=== PATIENT | female | born 1950 | race Caucasian/White ===

== ENCOUNTER 2019-06-23 04:20 | Observation (INO) | payer MEDICARE, OTHER ==
[2019-06-23 05:02] LABS: #Basophils 0.1 thou/uL (0.0-0.2); #Eosinphils 0.5 thou/uL (0.0-0.7); #Lymphocytes 3.1 thou/uL (1.20-3.40); #Monocytes 0.7 thou/uL (0.11-0.59); #Neutrophils 2.8 thou/uL (1.40-6.50); %Basophils 1.1 % (0.0-1.0); %Eosinophils 6.6 % (0.0-10.0); %Lymphocytes 43.6 % (21.0-51.0); %Monocytes 9.3 % (0.0-10.0); %Neutrophils 39.4 % (42.0-75.0); Hemoglobin 17.5 g/dL (12.0-16.0); Mean Corpuscular HGB CONC 34.9 g/dL (32.0-36.0); Mean Corpuscular Hemoglobin 31.4 pg (27.0-31.0); Mean Platelet Volume 6.9 fL (7.4-10.4); Platelet Count 287 thou/uL (130-400); RBC Distribution Width 12.8 % (11.5-14.5); Red Blood Cell (RBC) Count 5.58 mill/uL (4.20-5.40); White Blood Cell (WBC) Count 7.2 thou/uL (4.8-10.8)
[2019-06-23] MEDS ORDERED: Nitroglycerin 0.4 MG TAB 1 EACH ONE (05:02)
[2019-06-23] MEDS ORDERED: Ondansetron PF 4 MG/2 ML Vial ONE (05:22)
[2019-06-23 05:38] LABS: ALT (SGPT) 43 U/L (8-55); AST (SGOT) 35 U/L (5-34); Albumin 4.7 g/dL (3.4-4.8); Alkaline Phosphatase 87 U/L (40-110); Anion Gap 15 mmol/L (10-20); BUN (Urea Nitrogen) 19 mg/dL (9.8-20.1); Bilirubin, Total 0.5 mg/dL (0.2-1.2); Calc. Creatinine Clearance 0 mL/min (70-130); Calcium 9.6 mg/dL (7.8-10.44); Carbon Dioxide 22 mmol/L (23-31); Chloride 107 mmol/L (98-107); Estimated GFR-MDRD 56; Glucose 102 mg/dL (80-115); Potassium 4.2 mmol/L (3.5-5.1); Protein, Total 7.7 g/dL (6.0-8.3); Sodium 140 mmol/L (136-145)
--- NOTE | 2019-06-23 07:34 | RAD ---
Exam: Chest one view HISTORY:Chest pain Comparison: 06/05/2011 FINDINGS: Cardiac silhouette: Normal Aorta: Unremarkable Pulmonary vessels: Normal Costophrenic angles: Clear LUNGS: No masses or consolidation. Pneumothorax: None Osseous abnormalities: None IMPRESSION: No acute cardiopulmonary process.
[2019-06-23 08:09] VITALS: BMI 29.5
[2019-06-23 08:16] LABS: Troponin I Less than 0.010 ng/mL (< 0.028)
[2019-06-23] MEDS ORDERED: traMADol HCl 50 MG TAB PO PRN (08:27)
[2019-06-23] MEDS ORDERED: Acetaminophen 325 MG TAB PO PRN ×2 (08:28→11:54)
[2019-06-23] MEDS ORDERED: ADENOSINE 60 MG/20 ML VIAL ONE (09:33)
[2019-06-23] MEDS ORDERED: Sodium Chloride 0.9% 1,000 ML IV SCH (10:15)
--- NOTE | 2019-06-23 10:20 | PDOC.HHP ---
Hospitalist HPI - History of Present Illness Chest pain History of Present Illness: Patient is a 69/F with PMH significant for HTN, HLD, spontaneous hemorragic brain bleed that presented to the Emergency department for chest pain 1 hour prior to arrival. Reports left sided chest pain, stabbing, non radiating, constant, 8/10, exacerbated and relieved by nothing. Reports associated nausea and headache. Denies any SOB, light headedness. Denies any changes in vision or speech, no extremity weakness. Patient also reports that she is unable to tolerate medications for HTN, HLD, GERD - multifactorial. ED Course: BP 206/128, HR 97 RR 17 Sp02 94% RA EKG NSR with some T wave changes CXR negative for acute cardiopulmonary process Troponins negative x 2 Given 1L NS Zofran SL nitro x 1 which dropped her SBP in the 70s, she was diaphoretic. Hospitalist ROS - Review of Systems Constitutional: denies: fever, chills, sweats, weakness, malaise, other Eyes: denies: pain, vision change, conjunctivae inflammation, eyelid inflammation, redness, other ENT: denies: ear pain, ear discharge, nose pain, nose discharge, nose congestion , mouth pain, mouth swelling, throat pain, throat swelling, other Respiratory: denies: cough, dry, shortness of breath, hemoptysis, SOB with excertion, pleuritic pain, sputum, wheezing, other Cardiovascular: reports: chest pain. denies: palpitations, orthopnea, paroxysmal noc. dyspnea, edema, light headedness Gastrointestinal: reports: nausea, diarrhea (chronic diarrhea and constipation since abdominal surgery). denies: vomiting, abdominal pain Genitourinary: denies: dysuria, frequency, incontinence, hematuria, retention, other Musculoskeletal: denies: neck pain, shoulder pain, arm pain, back pain, hand pain, leg pain, foot pain, other Neurological: denies: weakness, numbness, incoordination, change in speech, confusion, seizures, other - Medication Medications: Active Medications Generic Name Dose Route Start Last Admin Trade Name Freq PRN Reason Stop Dose Admin Tramadol HCl 25 mg 06/23/19 08:27 06/23/19 08:56 Ultram PO 25 mg Q6H PRN Administration Pain Hospitalist History - Past Medical History Cardiac: reports: HTN, Hyperlipidemia Pulmonary: reports: no pertinent history 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) Gastrointestinal: reports: Diverticulosis Hepatobiliary: reports: no pertinent history Psych: reports: no pertinent history Musculoskeletal: reports: Osteoarthritis Rheumatologic: reports: no pertinent history Infectious Disease: reports: no pertinent history Renal/: reports: no pertinent history Endocrine: reports: no pertinent history Dermatology: reports: no pertinent history - Past Surgical History Past Surgical History: reports: Cholecystectomy, Hysterectomy, Other (colon resection with reversal) - Family History Family History: reports: cardiac disorder, cerebrovascular accident - Social History Smoking Status: Former smoker (quit 7 years, previously smoked 1.5 ppd x 20 years) Tobacco Type: cigarettes Alcohol: reports: None Drugs: reports: none Living Situation: With Family Occupation: Retired, lives in [place] Activity level: independent ambulation - Exam General Appearance: NAD, awake alert Eye: anicteric sclera ENT: normocephalic atraumatic Neck: supple, no JVD, no thyromegaly, no lymphadenopathy, JVD Heart: RRR, no murmur, no gallops, no rubs Respiratory: CTAB, no wheezes, no rales, no ronchi Gastrointestinal: soft, non-tender (active BS throughout), no guarding, no rigidity Extremities: no cyanosis, no clubbing, no edema Neurological: cranial nerve grossly intact, no focal deficits Musculoskeletal: normal tone, normal strength Psychiatric: normal affect, A&O x 3 Hospitalist Results - Labs Result Diagrams: 06/23/19 04:37 06/23/19 04:37 Lab results: WBC 7.2 thou/uL (4.8-10.8) 06/23/19 04:37 Hgb 17.5 g/dL (12.0-16.0) H 06/23/19 04:37 Hct 50.2 % (36.0-47.0) H 06/23/19 04:37 MCV 90.0 fL (78.0-98.0) 06/23/19 04:37 Plt Count 287 thou/uL (130-400) 06/23/19 04:37 Neutrophils % 39.4 % (42.0-75.0) L 06/23/19 04:37 Sodium 140 mmol/L (136-145) 06/23/19 04:37 Potassium 4.2 mmol/L (3.5-5.1) 06/23/19 04:37 Chloride 107 mmol/L (98-107) 06/23/19 04:37 Carbon Dioxide 22 mmol/L (23-31) L 06/23/19 04:37 BUN 19 mg/dL (9.8-20.1) 06/23/19 04:37 Creatinine 0.99 mg/dL (0.6-1.1) 06/23/19 04:37 Glucose 102 mg/dL (80-115) 06/23/19 04:37 Calcium 9.6 mg/dL (7.8-10.44) 06/23/19 04:37 Total Bilirubin 0.5 mg/dL (0.2-1.2) 06/23/19 04:37 AST 35 U/L (5-34) H 06/23/19 04:37 ALT 43 U/L (8-55) 06/23/19 04:37 Alkaline Phosphatase 87 U/L (40-110) 06/23/19 04:37 Troponin I Less than 0.010 ng/mL (< 0.028) 06/23/19 07:38 Serum Total Protein 7.7 g/dL (6.0-8.3) 06/23/19 04:37 Albumin 4.7 g/dL (3.4-4.8) 06/23/19 04:37 Laboratory Tests 06/23/19 06/23/19 04:37 07:38 Troponin I 0.012 Less than 0.010 - EKG Interpretation EKG: NSR - Radiology Interpretation Chest x-ray Status: report reviewed by me Hospitalist H&P A/P - Plan Plan: Impression: Chest pain, r/o Acute coronary syndrome HTN HLD GERD Non-compliance medication regimen History of hemorrhagic brain bleed CKD3, stable OA Diverticulosis Plan: youth nutritional monitor Trend troponins Hold ASA per patient request Hold nitro 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
[2019-06-23] MEDS ORDERED: ALPRAZolam 0.25 MG TAB PO PRN (10:36)
[2019-06-23 11:09] LABS: Troponin I Less than 0.010 ng/mL (< 0.028)
[2019-06-23] MEDS: Ondansetron ODT 4 MG TAB PO PRN ×2 (11:09→21:22)
[2019-06-23] MEDS ORDERED: traMADol HCl 50 MG TAB PO SCH (12:15)
[2019-06-23] MEDS ORDERED: Lorazepam 2 MG/ML VIAL SLOW IVP SCH (13:30)
[2019-06-23] MEDS: traMADol HCl 50 MG TAB PO PRN ×2 (17:20→21:20)
--- NOTE | 2019-06-23 17:30 | NM ---
EXAM: NM Cardiac Stress W EF WF PROVIDED CLINICAL HISTORY: Chest pain. Hypertension and dyslipidemia. COMPARISON: 06/06/2011 FINDINGS: No significant reversible defect is seen between the stress and resting acquisitions. Quantitative an alysis also shows no significant reversible defect. Attenuation corrected images were not obtained due to patient's refusal of additional imaging. Normal ventricular wall motion and wall thickening is present on the gated acquisitions. The left ventricular ejection fraction is 78%. Left ventricular ejection fraction on the prior exam was 66%. Transient ischemic dilatation ratio is 1.38 with normal ratio of 1.22 or less. IMPRESSION: 1. Normal myocardial perfusion study without evidence of a significant reversible defect seen to sugg est ischemia. 2. Normal LVEF of 78%. 3. Elevated transient ischemic dilatation ratio.
[2019-06-23] MEDS ORDERED: Carvedilol 3.125 MG TAB PO SCH (19:00)
[2019-06-24] MEDS: traMADol HCl 50 MG TAB PO PRN (01:15)
--- NOTE | 2019-06-24 02:32 | HP ---
SUBJECTIVE: The patient is a 69-year-old female with hypertension, hyperlipidemia, presented to the emergency room with chest discomfort that was left-sided, nonradiating, 8/10 with some nausea and headache. Her blood pressure in the emergency room was 206/128. EKG showed some nonspecific ST-T wave changes. OBJECTIVE: VITAL SIGNS: Reviewed. LUNGS: Clear to auscultation bilaterally. HEART: S1 and S2 present. Regular. LABORATORY DATA: Reviewed. ASSESSMENT AND PLAN: I have seen and examined the patient. I agree with a history and physical by nurse practitioner, Laurent Sorensen. The patient is refusing aspirin at this time. Due to intermediate probability for coronary artery disease, we will get a stress test. Code status was verified. Job ID: [id number]
[2019-06-24 05:20] LABS: Cardiac Risk 6.1 (Less than 4.5)
[2019-06-24] MEDS ORDERED: Carvedilol 3.125 MG TAB PO SCH (08:00)
[2019-06-24 08:33] VITALS: TEMP 97.5
[2019-06-24 10:00] VITALS: BP 121/72
[2019-06-24] MEDS: Aspirin 81 mg Enteric Coated Tablet PO SCH ×2 (10:07→10:39)
--- NOTE | 2019-06-24 15:08 | DIS ---
DATE OF ADMISSION: 06/23/2019 DATE OF DISCHARGE: 06/24/2019 DISCHARGE DISPOSITION: Home. FOLLOWUP: 1. Follow up with primary care physician, Dr. Laurent Nicholas, in 1 week. 2. Follow up with Dr. Dailey on the 30 June 2019 at 2:30 p.m. ALLERGIES: THE PATIENT IS ALLERGIC TO SULFA AND PSEUDOEPHEDRINE. DISCHARGE MEDICATIONS: 1. Aspirin 81 mg daily. 2. Lipitor 20 mg at bedtime. 3. Carvedilol 3.125 mg b.i.d. 4. Tramadol as needed. The patient was seen and examined on the day of discharge. Denies any new complaints. No chest pain, shortness of breath, or palpitations. BRIEF HOSPITAL COURSE: The patient is a 69-year-old female with hypertension, hyperlipidemia, and subarachnoid bleed in 2005, presented to the emergency room yesterday with chest discomfort. Please refer to the history and physical for further details. The patient was admitted to the hospital with a diagnosis of chest discomfort, rule out acute coronary syndrome. Serial troponins remain negative. She underwent a Cardiolite stress test that was negative for reversible ischemia. TID was 1.38. The case was discussed with Cardiology, Dr. Dailey, who recommended an outpatient followup in our office. The patient was reluctant to start low-dose aspirin until being evaluated by Dr. Dailey. I discussed with Dr. Ndiaye's PA, Devi Mancilla. The patient had a subarachnoid bleed in 2005. She had an extensive workup at that time. According to Devi, the patient is safe to start 81 mg aspirin. The patient stated understanding with this. She will follow up with Cardiology. FINAL DIAGNOSES: 1. Chest discomfort, acute coronary syndrome ruled out. 2. Elevated transient ischemic dilation on the stress test. 3. Former smoker. 4. Hypertension. Low-dose carvedilol was added. 5. Dyslipidemia. 6. Gastroesophageal reflux disease. 7. History of subarachnoid bleed in 2005. 8. Chronic kidney disease, stage 3. 9. Degenerative joint disease. 10. Diverticulosis. SIGNIFICANT LABORATORY DATA: Troponin negative. Fasting lipid showed triglyceride 319, cholesterol 224, LDL 123, HDL of 37. The patient and the family stated understanding. Job ID: [id number]
--- NOTE | 2019-06-26 12:04 | EKG ---
Test Reason : Blood Pressure : / mmHG Vent. Rate : 084 BPM Atrial Rate : 084 BPM P-R Int : 168 ms QRS Dur : 084 ms QT Int : 416 ms P-R-T Axes : 050 028 095 degrees QTc Int : 491 ms Normal sinus rhythm Possible Left atrial enlargement Abnormal QRS-T angle, consider primary T wave abnormality Prolonged QT Abnormal ECG Confirmed by BETY HANSON ([id number]), market editor MILLIE MILIAN ([id number]) on 06/26/2019 12:04:42 PM Referred By: Confirmed By:BETY HANSON
--- NOTE | 2019-06-26 12:04 | EKG ---
Test Reason : Blood Pressure : / mmHG Vent. Rate : 096 BPM Atrial Rate : 096 BPM P-R Int : 164 ms QRS Dur : 078 ms QT Int : 374 ms P-R-T Axes : 058 012 099 degrees QTc Int : 472 ms Normal sinus rhythm Possible Left atrial enlargement Inferior infarct , age undetermined Abnormal ECG Confirmed by BETY HANSON ([id number]), editor continuity and script MILLIE MILIAN ([id number]) on 06/26/2019 12:04:38 PM Referred By: Confirmed By:BETY HANSON
== END 2019-06-24 11:36 | disposition home or self-care (01) ==
LOC: ERS 04:20 → 2SW 06:43
PROVIDERS: ADMIT Internal Medicine; ATTEND Internal Medicine
DX: R07.89 Other chest pain (principal); E78.5 Hyperlipidemia, unspecified; K21.9 Gastro-esophageal reflux disease without esophagitis; M19.90 Unspecified osteoarthritis, unspecified site; I12.9 Hypertensive chronic kidney disease with stage 1 through stage 4 chronic kidney disease, or unspecified chronic kidney disease; N18.3 Chronic kidney disease, stage 3 (moderate); K57.30 Diverticulosis of large intestine without perforation or abscess without bleeding; Z86.73 Personal history of transient ischemic attack (TIA), and cerebral infarction without residual deficits; Z87.891 Personal history of nicotine dependence; Z88.2 Allergy status to sulfonamides; Z88.8 Allergy status to other drugs, medicaments and biological substances; Z91.14 Patient's other noncompliance with medication regimen
CPT/HCPCS: 71045; 78452; 80053; 80061; 84484 ×2; 85025; 93005; 93017; 96361; 96374; 96375; 97139; 99285; A9500; G0378 ×3; 36415; J0153; J2060; J2405; Q0162

== ENCOUNTER 2019-06-25 16:35 | Emergency (ER) | payer MEDICARE, OTHER ==
[~2019-06-25 16:35] MED LIST: Iopamidol-370 76% 500 ML 1 ML ONE
[2019-06-25 17:02] LABS: #Eosinphils 0.4 thou/uL (0.0-0.7); #Monocytes 0.5 thou/uL (0.11-0.59); #Neutrophils 2.8 thou/uL (1.40-6.50); %Basophils 0.6 % (0.0-1.0); %Eosinophils 6.2 % (0.0-10.0); %Lymphocytes 34.7 % (21.0-51.0); %Monocytes 8.2 % (0.0-10.0); %Neutrophils 50.3 % (42.0-75.0); Hemoglobin 16.1 g/dL (12.0-16.0); Mean Corpuscular HGB CONC 34.5 g/dL (32.0-36.0); Mean Corpuscular Hemoglobin 31.3 pg (27.0-31.0); Mean Corpuscular Volume 90.8 fL (78.0-98.0); Mean Platelet Volume 6.9 fL (7.4-10.4); Platelet Count 276 thou/uL (130-400); RBC Distribution Width 12.7 % (11.5-14.5); Red Blood Cell (RBC) Count 5.13 mill/uL (4.20-5.40); White Blood Cell (WBC) Count 5.6 thou/uL (4.8-10.8)
[2019-06-25 17:20] LABS: ALT (SGPT) 43 U/L (8-55); AST (SGOT) 41 U/L (5-34); Albumin 4.2 g/dL (3.4-4.8); Alkaline Phosphatase 74 U/L (40-110); Anion Gap 14 mmol/L (10-20); BUN (Urea Nitrogen) 14 mg/dL (9.8-20.1); Bilirubin, Total 0.6 mg/dL (0.2-1.2); CK (CPK) 63 U/L (29-168); Calc. Creatinine Clearance 0 mL/min (70-130); Calcium 9.2 mg/dL (7.8-10.44); Carbon Dioxide 23 mmol/L (23-31); Chloride 107 mmol/L (98-107); Estimated GFR-MDRD 74; Globulin 3.1 g/dL (2.4-3.5); Glucose 149 mg/dL (80-115); Potassium 3.7 mmol/L (3.5-5.1); Protein, Total 7.3 g/dL (6.0-8.3); Sodium 140 mmol/L (136-145)
[2019-06-25] MEDS ORDERED: Midazolam HCl 5 mg/ml Vial ONE (17:42)
--- NOTE | 2019-06-25 18:30 | CT ---
Exam: CT angiogram of the thoracic aorta CT angiogram of the abdominal aorta HISTORY: Chest pain. History of abdominal aortic aneurysm COMPARISON: None TECHNIQUE: CT angiogram of the thoracic and abdominal aorta performed in the axial plane. Three-dimen sional reformatted images are submitted for interpretation FINDINGS: Chest CT: Visualized lower neck and axilla are unremarkable Mediastinum: No mass, lymphadenopathy or hematoma HEART: Normal heart size. No significant pericardial fluid. There are scattered coronary calcificatio ns in the left anterior coronary artery. Trachea and central bronchi: Patent Pleural effusion: None Pneumothorax: None LUNGS: Emphysematous changes, predominantly upper lobes. Dependent atelectatic changes in the lung ba ses. No suspicious consolidation. Lung nodules: No suspicious nodules in the right or left lung. Abdomen CT: Appropriate enhancement of the adrenal glands. There is appropriate arterial phase enhanc ement of the spleen. The pancreas has a appropriate attenuation. Mildly prominent pancreatic duct without obvious mass in the head of the pancreas is noted. Pancreatic duct measures 0.3 cm. Gallbladder surgically absent Diffuse hypoattenuation of the liver due to hepatic steatosis. There are no enhancing liver masses No gastrohepatic, retrocrural or periportal lymphadenopathy Enlarged left periaortic lymph node measures 1.1 x 0.6 cm. Symmetric enhancement of the kidneys. Bilaterally no obstructive uropathy. Limited evaluation the alimentary canal by the lack of oral contrast. No evidence of bowel obstructio n. CT ANGIOGRAM: The aortic root has appropriate enhancement and luminal diameter. The ascending thoraci c aorta has appropriate enhancement and luminal diameter. Aortic arch, descending thoracic aorta also have appropriate enhancement and luminal diameter. Minimal calcified and noncalcified plaque in the descending thoracic aorta The origin of the great vessels of the neck are grossly unremarkable The abdominal aorta doesn't demonstrate aneurysmal dilatation with eccentric thrombus as well as ulce ration. The infrarenal abdominal aorta measures 3.0 x 3.6 cm in the axial plane. Aortic bifurcation is unremarkable. The celiac artery origin, superior mesenteric artery origin, bilateral renal arteries have appropriat e enhancement and luminal diameter. Note, there appear to be 3 right renal arteries and 2 left renal arteries. Inferior mesenteric artery origin is unremarkable. There is atherosclerosis of the vi sualized iliac arteries. With regards to the aorta there is no evidence of periaortic fat stranding. IMPRESSION: 1. Aneurysmal dilatation of the infrarenal abdominal aorta with noncalcified plaque. This ulceration of the noncalcified plaques. Consider cardiovascular surgical consultation for further evaluation. No evidence of aortic rupture. 2. Nonspecific enlarged left periaortic lymph node. 3. Pancreatic duct diameter that is at the upper limits of normal. Transcribed Date/Time: 06/25/2019 6:42 PM
--- NOTE | 2019-06-25 18:33 | RAD ---
Exam: Chest one view HISTORY:Chest pain. Comparison: 06/23/2019 FINDINGS: Cardiac silhouette: Normal Aorta: Unremarkable Pulmonary vessels: Normal Costophrenic angles: Clear LUNGS: No masses or consolidation. Pneumothorax: None Osseous abnormalities: None IMPRESSION: No acute cardiopulmonary process.
[2019-06-26] MEDS ORDERED: Lidocaine 1% w/Epinephrine 1:100K 20 ML VIAL ONE (03:40)
[2019-06-26] MEDS ORDERED: Lidocaine 1% (PF) 30 ML VIAL ONE (03:40)
== END 2019-06-25 19:47 | disposition home or self-care (01) ==
LOC: ERS 16:35
DX: R07.89 Other chest pain (principal); I10 Essential (primary) hypertension; E78.5 Hyperlipidemia, unspecified; E78.00 Pure hypercholesterolemia, unspecified
CPT/HCPCS: 36415; 71045; 71275; 72191; 74175; 80053; 82550; 84484; 85025; 93005; 96374; J2001; J2250; Q9967

== ENCOUNTER 2020-06-29 15:15 | Emergency (ER) | payer MEDICARE, BC ==
[2020-06-29] MEDS ORDERED: Acetaminophen/Codeine 30-300mg Tablet ONE (16:47)
--- NOTE | 2020-06-29 17:40 | RAD ---
LEFT KNEE FOUR VIEWS: 06/29/20 HISTORY: Knot on the left knee. FINDINGS/IMPRESSION: No fracture, dislocation or bony destruction is seen. No joint effusion identified. There re mild deg enerative changes. POS: [facility]
== END 2020-06-29 16:52 | disposition home or self-care (01) ==
LOC: ERS 15:15
DX: S83.92XA Sprain of unspecified site of left knee, initial encounter (principal); E78.5 Hyperlipidemia, unspecified; E78.00 Pure hypercholesterolemia, unspecified; I10 Essential (primary) hypertension; Z87.891 Personal history of nicotine dependence; Z79.899 Other long term (current) drug therapy; X58.XXXA Exposure to other specified factors, initial encounter

== ENCOUNTER 2020-08-06 14:48 | Inpatient (IN) | payer BC, MEDICARE ==
[2020-08-06] MEDS ORDERED: Cefepime 2 GM VIAL ONE (15:44)
[2020-08-06 15:54] LABS: #Lymphocytes 0.9 thou/uL (1.20-3.40); #Monocytes 0.5 thou/uL (0.11-0.59); #Neutrophils 6.1 thou/uL (1.40-6.50); %Basophils 0.4 % (0.0-1.0); %Eosinophils 0.1 % (0.0-10.0); %Lymphocytes 11.7 % (21.0-51.0); %Neutrophils 81.8 % (42.0-75.0); Hemoglobin 13.8 g/dL (12.0-16.0); Mean Corpuscular HGB CONC 34.1 g/dL (32.0-36.0); Mean Corpuscular Hemoglobin 31.9 pg (27.0-31.0); Mean Corpuscular Volume 93.5 fL (78.0-98.0); Mean Platelet Volume 6.8 fL (7.4-10.4); Platelet Count 187 thou/uL (130-400); RBC Distribution Width 13.1 % (11.5-14.5); Red Blood Cell (RBC) Count 4.34 mill/uL (4.20-5.40); White Blood Cell (WBC) Count 7.5 thou/uL (4.8-10.8)
[2020-08-06] MEDS ORDERED: VANCOMYCIN 2 GRAM/400 ML BAG 2 GM in Premix Bag 1 BAG IVPB SCH (16:00)
[2020-08-06] MEDS ORDERED: Norepinephrine 8 MG/0.9% NS 250 ML IVPB SCH (16:00)
[2020-08-06 16:01] LABS: Actual Bicarbonate (HCO3v) 20 mEq/L (22-28); Analyzer IN Cardio ER; Calcium, Ionized (venous) 0.99 mmol/L (1.16-1.32); Chloride (VBG) 105 mmol/L (98-106); Hemoglobin (Hb) 14.6 g/dL (11.7-16.1); Potassium (VBG) 3.78 mmol/L (3.70-5.30); Sodium 134.2 mmol/L (133-146); pH (venous) 7.39 (7.32-7.43)
[2020-08-06 16:12] LABS: Bilirubin Negative (Negative); Blood, Urine Negative (Negative); Clarity Clear (Clear); Glucose, Urine (Dipstick) Normal (Negative); Ketone, Urine Negative (Negative); Leukocyte Negative Leu/uL (Negative); Nitrite Negative (Negative); Protein, Urine (Dipstick) Negative (Neg-Trace); Specific Gravity, Urine 1.005 (1.002-1.036); Urobilinogen Normal mg/dL (Less than 2); pH, Urine 6.5 (5.0-9.0)
[2020-08-06 16:15] LABS: ALT (SGPT) 58 U/L (8-55); AST (SGOT) 61 U/L (5-34); Albumin 3.2 g/dL (3.4-4.8); Alkaline Phosphatase 54 U/L (40-110); Anion Gap 13 mmol/L (10-20); BUN (Urea Nitrogen) 16 mg/dL (9.8-20.1); Calc. Creatinine Clearance 0 mL/min (70-130); Calcium 6.9 mg/dL (7.8-10.44); Carbon Dioxide 19 mmol/L (23-31); Chloride 106 mmol/L (98-107); Globulin 2.2 g/dL (2.4-3.5); Glucose 97 mg/dL (80-115); Potassium 3.9 mmol/L (3.5-5.1); Protein, Total 5.4 g/dL (5.8-8.1); Sodium 134 mmol/L (136-145)
[2020-08-06 17:29] LABS: SARS-CoV-2 NAA Rapid Test DETECTED (NotDetected)
[2020-08-06] MEDS ORDERED: Guaifenesin DM 100-10/5 ML UDCUP PO PRN (18:12)
[2020-08-06] MEDS ORDERED: Norepinephrine 8 MG/0.9% NS 250 ML IVPB PRN (18:12)
[2020-08-06] MEDS ORDERED: Calcium Carbonate 500 MG ChewTAB PO PRN (18:12)
[2020-08-06] MEDS ORDERED: Pharmacy to Dose- VANCOMYCIN IVPB PRN (19:24)
[2020-08-06] MEDS: Atorvastatin Calcium 20 MG TAB PO SCH (19:49)
[2020-08-06] MEDS: Lactated Ringer's 1,000 ML IV SCH ×2 (19:50→22:47)
[2020-08-06] MEDS ORDERED: methylPREDNISolone Sod Succ/PF 80 MG in Sodium Chloride 0.9% 250 ML 250 ML IVPB SCH (20:00)
[2020-08-06] MEDS ORDERED: REMDESIVIR (EUA) 200 MG in Sodium Chloride 0.9% 250 ML 210 ML IV SCH (20:00)
[2020-08-06 21:05] VITALS: BMI 30.6
[2020-08-06] MEDS ORDERED: Sodium Chloride 0.65% Nasal 44 ML BOT EA NARE PRN (21:53)
[2020-08-06] MEDS: Albuterol 200 PUFF (6.7GM INHALER) INH SCH ×2 (21:53→22:15)
[2020-08-06] MEDS: Enoxaparin Sodium 40 MG/0.4 ML SYRINGE SC SCH ×2 (22:00→22:47)
[2020-08-06] MEDS: Piperacillin/Tazobactam 4.5 GM in Sodium Chloride 0.9% 100 ML IVPB SCH (22:47)
[2020-08-06] MEDS: Acetaminophen 325 MG TAB PO PRN (22:48)
[2020-08-06] MEDS ORDERED: methylPREDNISolone Sod Succ 40 MG VIAL IVP SCH (23:59)
[2020-08-07] MEDS ORDERED: Sodium Chloride 0.9% 500 ML IVPB SCH (02:15)
[2020-08-07] MEDS: Piperacillin/Tazobactam 4.5 GM in Sodium Chloride 0.9% 100 ML IVPB SCH (05:41)
[2020-08-07] MEDS: Albuterol 200 PUFF (6.7GM INHALER) INH SCH ×4 (05:41→23:51)
[2020-08-07 06:30] LABS: #Lymphocytes 0.6 thou/uL (1.20-3.40); #Monocytes 0.2 thou/uL (0.11-0.59); #Neutrophils 3.2 thou/uL (1.40-6.50); %Eosinophils 0.1 % (0.0-10.0); %Lymphocytes 14.4 % (21.0-51.0); %Monocytes 4.4 % (0.0-10.0); %Neutrophils 81.1 % (42.0-75.0); Hemoglobin 13.2 g/dL (12.0-16.0); Mean Corpuscular HGB CONC 32.9 g/dL (32.0-36.0); Mean Corpuscular Hemoglobin 30.9 pg (27.0-31.0); Mean Platelet Volume 6.8 fL (7.4-10.4); Platelet Count 183 thou/uL (130-400); RBC Distribution Width 13.1 % (11.5-14.5); Red Blood Cell (RBC) Count 4.28 mill/uL (4.20-5.40); White Blood Cell (WBC) Count 3.9 thou/uL (4.8-10.8)
[2020-08-07 06:52] LABS: ALT (SGPT) 54 U/L (8-55); AST (SGOT) 53 U/L (5-34); Alkaline Phosphatase 56 U/L (40-110); Anion Gap 10 mmol/L (10-20); BUN (Urea Nitrogen) 13 mg/dL (9.8-20.1); Bilirubin, Total 0.8 mg/dL (0.2-1.2); Calc. Creatinine Clearance 88 mL/min (70-130); Calcium 7.2 mg/dL (7.8-10.44); Carbon Dioxide 22 mmol/L (23-31); Chloride 111 mmol/L (98-107); Globulin 2.4 g/dL (2.4-3.5); Glucose 152 mg/dL (80-115); Potassium 4.1 mmol/L (3.5-5.1); Protein, Total 5.4 g/dL (5.8-8.1); Sodium 139 mmol/L (136-145)
[2020-08-07] MEDS: Enoxaparin Sodium 40 MG/0.4 ML SYRINGE SC SCH ×2 (07:58→21:09)
[2020-08-07] MEDS: Ascorbic Acid 500 mg Chewable Tablet PO SCH (07:58)
[2020-08-07] MEDS: Aspirin 81 mg Enteric Coated Tablet PO SCH (07:58)
[2020-08-07] MEDS: Zinc Sulfate 220 MG CAP PO SCH (07:58)
[2020-08-07] MEDS ORDERED: Enoxaparin Sodium 40 MG/0.4 ML SYRINGE SC SCH (09:00)
[2020-08-07] MEDS: Ondansetron PF 4 MG/2 ML Vial IVP PRN (11:15)
[2020-08-07] MEDS: Lactated Ringer's 1,000 ML IV SCH ×2 (14:16→23:50)
[2020-08-07] MEDS ORDERED: VANCOMYCIN 1.25 GM/250 ML BAG 1.25 GM in Premix Bag 1 BAG IVPB SCH (17:00)
[2020-08-07] MEDS: Acetaminophen 325 MG TAB PO PRN (18:45)
[2020-08-07] MEDS ORDERED: REMDESIVIR (EUA) 100 MG in Sodium Chloride 0.9% 250 ML 230 ML IV SCH (20:00)
[2020-08-07] MEDS ORDERED: ALPRAZolam 0.5 MG TAB PO SCH (21:00)
[2020-08-07] MEDS: Atorvastatin Calcium 20 MG TAB PO SCH (21:09)
[2020-08-08] MEDS ORDERED: Melatonin 3 MG TAB PO SCH (00:30)
[2020-08-08] MEDS: Ondansetron PF 4 MG/2 ML Vial IVP PRN ×2 (03:22→09:40)
[2020-08-08] MEDS: Ascorbic Acid 500 mg Chewable Tablet PO SCH (08:14)
[2020-08-08] MEDS: Aspirin 81 mg Enteric Coated Tablet PO SCH (08:14)
[2020-08-08] MEDS: Acetaminophen 325 MG TAB PO PRN (08:15)
[2020-08-08] MEDS: Zinc Sulfate 220 MG CAP PO SCH (08:15)
[2020-08-08] MEDS: Albuterol 200 PUFF (6.7GM INHALER) INH SCH (08:15)
[2020-08-08] MEDS: Enoxaparin Sodium 40 MG/0.4 ML SYRINGE SC SCH (08:16)
[2020-08-08 08:17] VITALS: TEMP 98.3
[2020-08-08] MEDS ORDERED: Dexamethasone 6 MG in Sodium Chloride 0.9% 50 ML IVPB SCH (09:00)
[2020-08-08] MEDS: Lactated Ringer's 1,000 ML IV SCH (11:34)
== END 2020-08-08 13:30 | disposition left against medical advice (07) | DRG 871 ==
LOC: ERS 14:48 → IMCU/EMU 17:23
PROVIDERS: ADMIT Internal Medicine; ATTEND Internal Medicine
PROC: 02HV33Z Insertion of Infusion Device into Superior Vena Cava, Percutaneous Approach (ICD-10-PCS; principal; 2020-08-06)
PROC: XW033E5 Introduction of Remdesivir Anti-infective into Peripheral Vein, Percutaneous Approach, New Technology Group 5 (ICD-10-PCS; 2020-08-06)
PROC: 3E033XZ Introduction of Vasopressor into Peripheral Vein, Percutaneous Approach (ICD-10-PCS; 2020-08-06)
DX: A41.89 Other specified sepsis (principal); U07.1 COVID-19; J12.82 Pneumonia due to coronavirus disease 2019; J96.01 Acute respiratory failure with hypoxia; R57.1 Hypovolemic shock; E78.5 Hyperlipidemia, unspecified; E78.00 Pure hypercholesterolemia, unspecified; I10 Essential (primary) hypertension; E66.9 Obesity, unspecified; K21.9 Gastro-esophageal reflux disease without esophagitis; Z90.710 Acquired absence of both cervix and uterus; Z87.891 Personal history of nicotine dependence; Z88.2 Allergy status to sulfonamides; Z88.8 Allergy status to other drugs, medicaments and biological substances; Z79.82 Long term (current) use of aspirin; Z79.899 Other long term (current) drug therapy; Z68.30 Body mass index [BMI] 30.0-30.9, adult; Z90.49 Acquired absence of other specified parts of digestive tract; Z82.3 Family history of stroke; Z82.49 Family history of ischemic heart disease and other diseases of the circulatory system
CPT/HCPCS: 0240U; 36415; 36556; 70450; 71045; 80053; 81003; 82728; 82805; 83605; 84145; 85025; 86140; 87040; 87086; 96365; 96366; J0692; J1100; J1650; J2405; J2543; J2930; J3370; J3490; J7030; J7050

== ENCOUNTER 2020-08-08 16:53 | Inpatient (IN) | payer BC, MEDICARE ==
[2020-08-08 18:20] LABS: #Lymphocytes 0.7 thou/uL (1.20-3.40); #Monocytes 0.7 thou/uL (0.11-0.59); #Neutrophils 7.2 thou/uL (1.40-6.50); %Basophils 0.4 % (0.0-1.0); %Eosinophils 0.1 % (0.0-10.0); %Lymphocytes 8.5 % (21.0-51.0); %Monocytes 7.5 % (0.0-10.0); %Neutrophils 83.4 % (42.0-75.0); Hemoglobin 14.6 g/dL (12.0-16.0); Mean Corpuscular HGB CONC 33.3 g/dL (32.0-36.0); Mean Platelet Volume 6.8 fL (7.4-10.4); Platelet Count 242 thou/uL (130-400); Red Blood Cell (RBC) Count 4.71 mill/uL (4.20-5.40); White Blood Cell (WBC) Count 8.6 thou/uL (4.8-10.8)
[2020-08-08 18:42] LABS: ALT (SGPT) 47 U/L (8-55); AST (SGOT) 47 U/L (5-34); Albumin 3.9 g/dL (3.4-4.8); Alkaline Phosphatase 66 U/L (40-110); Anion Gap 12 mmol/L (10-20); BUN (Urea Nitrogen) 11 mg/dL (9.8-20.1); Bilirubin, Total 0.8 mg/dL (0.2-1.2); Calc. Creatinine Clearance 0 mL/min (70-130); Calcium 8.2 mg/dL (7.8-10.44); Carbon Dioxide 28 mmol/L (23-31); Chloride 106 mmol/L (98-107); Globulin 2.7 g/dL (2.4-3.5); Glucose 119 mg/dL (80-115); Potassium 4.2 mmol/L (3.5-5.1); Protein, Total 6.6 g/dL (5.8-8.1); Sodium 142 mmol/L (136-145)
[2020-08-08] MEDS ORDERED: Ondansetron PF 4 MG/2 ML Vial IVP PRN (21:28)
[2020-08-08] MEDS ORDERED: Acetaminophen 650 MG Suppository PR PRN (21:28)
[2020-08-08] MEDS ORDERED: Ondansetron ODT 4 MG TAB PO PRN (21:28)
[2020-08-08] MEDS ORDERED: guaiFENesin 200 MG TAB PO PRN (21:33)
[2020-08-08] MEDS ORDERED: Albuterol 200 PUFF (6.7GM INHALER) INH PRN (21:34)
[2020-08-08] MEDS ORDERED: Dexamethasone 4 mg/ml Vial SLOW IVP SCH (22:00)
[2020-08-08] MEDS: Dexamethasone 4 mg/ml Vial SLOW IVP SCH (22:43)
[2020-08-08] MEDS: Albuterol 200 PUFF (6.7GM INHALER) INH SCH (22:52)
[2020-08-09] MEDS ORDERED: ALPRAZolam 0.25 MG TAB PO SCH (01:30)
[2020-08-09] MEDS: Albuterol 200 PUFF (6.7GM INHALER) INH SCH ×6 (01:41→22:18)
[2020-08-09] MEDS: Acetaminophen 325 MG TAB PO PRN ×3 (01:41→22:46)
[2020-08-09 03:10] VITALS: BMI 31.2
[2020-08-09 06:01] LABS: #Lymphocytes 0.6 thou/uL (1.20-3.40); #Monocytes 0.5 thou/uL (0.11-0.59); #Neutrophils 5.2 thou/uL (1.40-6.50); %Basophils 0.7 % (0.0-1.0); %Eosinophils 0.1 % (0.0-10.0); %Lymphocytes 9.3 % (21.0-51.0); %Neutrophils 81.8 % (42.0-75.0); Hemoglobin 13.3 g/dL (12.0-16.0); Mean Corpuscular HGB CONC 32.7 g/dL (32.0-36.0); Mean Corpuscular Hemoglobin 30.3 pg (27.0-31.0); Mean Corpuscular Volume 92.8 fL (78.0-98.0); Mean Platelet Volume 6.8 fL (7.4-10.4); Platelet Count 243 thou/uL (130-400); White Blood Cell (WBC) Count 6.3 thou/uL (4.8-10.8)
[2020-08-09 06:24] LABS: Anion Gap 14 mmol/L (10-20); BUN (Urea Nitrogen) 12 mg/dL (9.8-20.1); Calc. Creatinine Clearance 99 mL/min (70-130); Calcium 7.8 mg/dL (7.8-10.44); Carbon Dioxide 22 mmol/L (23-31); Chloride 105 mmol/L (98-107); Glucose 150 mg/dL (80-115); Potassium 3.4 mmol/L (3.5-5.1); Sodium 138 mmol/L (136-145)
[2020-08-09] MEDS: Zinc Sulfate 220 MG CAP PO SCH (08:04)
[2020-08-09] MEDS: Aspirin 81 mg Enteric Coated Tablet PO SCH (08:04)
[2020-08-09] MEDS: guaiFENesin ER 600 MG TAB PO SCH ×2 (08:04→20:47)
[2020-08-09] MEDS: Famotidine 20 MG TAB PO SCH ×2 (08:04→20:47)
[2020-08-09] MEDS: Ascorbic Acid 500 mg Chewable Tablet PO SCH (08:04)
[2020-08-09] MEDS: Cholecalciferol (Vitamin D3) 400 UNITS TAB PO SCH (08:04)
[2020-08-09] MEDS: Dexamethasone 4 mg/ml Vial SLOW IVP SCH (08:05)
[2020-08-09] MEDS: Fluticasone Propionate Nasal Spray 16 gm Bottle NASAL SCH (08:05)
[2020-08-09] MEDS ORDERED: REMDESIVIR (EUA) 200 MG in Sodium Chloride 0.9% 250 ML 210 ML IV SCH (09:00)
[2020-08-09] MEDS ORDERED: FLU VACC QS2020-21(65YR UP)/PF 240 MCG/0.7 ML SYRINGE IM ONE (09:00)
[2020-08-09] MEDS: REMDESIVIR (EUA) 100 MG in Sodium Chloride 0.9% 250 ML 230 ML IV SCH (10:08)
[2020-08-09] MEDS: Docusate 100 MG CAP PO PRN ×2 (14:51→20:47)
[2020-08-10] MEDS ORDERED: ALPRAZolam 0.25 MG TAB PO SCH ×2 (01:30→20:45)
[2020-08-10] MEDS: Albuterol 200 PUFF (6.7GM INHALER) INH SCH ×6 (01:35→21:31)
[2020-08-10 06:06] LABS: Anion Gap 13 mmol/L (10-20); BUN (Urea Nitrogen) 15 mg/dL (9.8-20.1); Calc. Creatinine Clearance 97 mL/min (70-130); Calcium 7.9 mg/dL (7.8-10.44); Carbon Dioxide 24 mmol/L (23-31); Chloride 107 mmol/L (98-107); Glucose 133 mg/dL (80-115); Potassium 3.4 mmol/L (3.5-5.1); Sodium 141 mmol/L (136-145)
[2020-08-10] MEDS ORDERED: REMDESIVIR (EUA) 100 MG in Sodium Chloride 0.9% 250 ML 230 ML IV SCH (09:00)
[2020-08-10] MEDS: Cholecalciferol (Vitamin D3) 400 UNITS TAB PO SCH (09:02)
[2020-08-10] MEDS: Ascorbic Acid 500 mg Chewable Tablet PO SCH (09:02)
[2020-08-10] MEDS: Dexamethasone 4 mg/ml Vial SLOW IVP SCH (09:02)
[2020-08-10] MEDS: Zinc Sulfate 220 MG CAP PO SCH (09:02)
[2020-08-10] MEDS: Aspirin 81 mg Enteric Coated Tablet PO SCH (09:02)
[2020-08-10] MEDS: guaiFENesin ER 600 MG TAB PO SCH ×2 (09:02→20:56)
[2020-08-10] MEDS: Famotidine 20 MG TAB PO SCH ×2 (09:02→20:55)
[2020-08-10] MEDS: Potassium Chloride 20 MEQ TAB PO SCH (09:02)
[2020-08-10] MEDS: Fluticasone Propionate Nasal Spray 16 gm Bottle NASAL SCH (09:03)
[2020-08-10] MEDS: REMDESIVIR (EUA) 100 MG in Sodium Chloride 0.9% 250 ML 230 ML IV SCH (10:33)
[2020-08-10] MEDS: Polyethylene Glycol 3350 17 GM Packet PO PRN (16:24)
[2020-08-10] MEDS: Docusate 100 MG CAP PO PRN (20:55)
[2020-08-11] MEDS: Albuterol 200 PUFF (6.7GM INHALER) INH SCH ×5 (02:44→17:19)
[2020-08-11 06:18] LABS: #Lymphocytes 1.7 thou/uL (1.20-3.40); #Monocytes 0.7 thou/uL (0.11-0.59); #Neutrophils 4.4 thou/uL (1.40-6.50); %Basophils 0.3 % (0.0-1.0); %Eosinophils 0.5 % (0.0-10.0); %Lymphocytes 24.9 % (21.0-51.0); %Monocytes 10.5 % (0.0-10.0); %Neutrophils 63.7 % (42.0-75.0); Hemoglobin 13.6 g/dL (12.0-16.0); Mean Corpuscular HGB CONC 33.2 g/dL (32.0-36.0); Mean Corpuscular Hemoglobin 30.9 pg (27.0-31.0); Mean Platelet Volume 6.9 fL (7.4-10.4); Platelet Count 262 thou/uL (130-400); Red Blood Cell (RBC) Count 4.39 mill/uL (4.20-5.40); White Blood Cell (WBC) Count 6.9 thou/uL (4.8-10.8)
[2020-08-11 06:43] LABS: Anion Gap 15 mmol/L (10-20); BUN (Urea Nitrogen) 17 mg/dL (9.8-20.1); Calc. Creatinine Clearance 102 mL/min (70-130); Carbon Dioxide 21 mmol/L (23-31); Chloride 106 mmol/L (98-107); Glucose 133 mg/dL (80-115); Magnesium 1.9 mg/dL (1.6-2.6); Potassium 3.8 mmol/L (3.5-5.1); Sodium 138 mmol/L (136-145)
[2020-08-11] MEDS: Famotidine 20 MG TAB PO SCH (09:11)
[2020-08-11] MEDS: Cholecalciferol (Vitamin D3) 400 UNITS TAB PO SCH (09:11)
[2020-08-11] MEDS: Ascorbic Acid 500 mg Chewable Tablet PO SCH (09:11)
[2020-08-11] MEDS: Aspirin 81 mg Enteric Coated Tablet PO SCH (09:11)
[2020-08-11] MEDS: guaiFENesin ER 600 MG TAB PO SCH (09:12)
[2020-08-11] MEDS: Dexamethasone 4 mg/ml Vial SLOW IVP SCH (09:12)
[2020-08-11] MEDS: Fluticasone Propionate Nasal Spray 16 gm Bottle NASAL SCH (09:12)
[2020-08-11] MEDS: Potassium Chloride 20 MEQ TAB PO SCH (09:12)
[2020-08-11] MEDS: Zinc Sulfate 220 MG CAP PO SCH (09:12)
[2020-08-11] MEDS: REMDESIVIR (EUA) 100 MG in Sodium Chloride 0.9% 250 ML 230 ML IV SCH (09:13)
[2020-08-11] MEDS: Polyethylene Glycol 3350 17 GM Packet PO PRN (12:26)
[2020-08-11 18:29] VITALS: BP 133/76; TEMP 98.2
== END 2020-08-11 18:23 | disposition home or self-care (01) | DRG 177 ==
LOC: ERS 16:53 → T4-B 18:50
PROVIDERS: ADMIT Internal Medicine; ATTEND Internal Medicine
PROC: XW033E5 Introduction of Remdesivir Anti-infective into Peripheral Vein, Percutaneous Approach, New Technology Group 5 (ICD-10-PCS; principal; 2020-08-09)
DX: U07.1 COVID-19 (principal); J96.01 Acute respiratory failure with hypoxia; J12.82 Pneumonia due to coronavirus disease 2019; I10 Essential (primary) hypertension; E66.9 Obesity, unspecified; K21.9 Gastro-esophageal reflux disease without esophagitis; E87.6 Hypokalemia; Z93.3 Colostomy status; Z90.710 Acquired absence of both cervix and uterus; Z87.891 Personal history of nicotine dependence; Z88.2 Allergy status to sulfonamides; Z88.8 Allergy status to other drugs, medicaments and biological substances; Z79.82 Long term (current) use of aspirin; Z79.899 Other long term (current) drug therapy; Z68.31 Body mass index [BMI] 31.0-31.9, adult; Z90.49 Acquired absence of other specified parts of digestive tract; Z28.21 Immunization not carried out because of patient refusal
CPT/HCPCS: 36415; 80048; 80053; 83605; 83735; 83880; 84132; 84484; 85025; 93005; 94760; J1100; J7050; Q0162

== ENCOUNTER 2020-08-23 21:33 | Emergency (ER) | payer BC, MEDICARE ==
[2020-08-24] MEDS ORDERED: Lorazepam 1 MG TAB ONE (00:40)
[2020-08-24] MEDS ORDERED: Ondansetron ODT 8 MG TAB ONE (00:40)
[2020-08-24] MEDS ORDERED: Acetaminophen/Codeine 30-300mg Tablet ONE (00:40)
== END 2020-08-24 01:41 | disposition home or self-care (01) ==
LOC: ERS 21:33
DX: B37.3 Candidiasis of vulva and vagina (principal)
CPT/HCPCS: 99283; Q0162

== ENCOUNTER 2021-01-17 11:00 | Outpatient (CLI) | payer MEDICARE, BC | END 2021-01-17 11:01 | disposition home or self-care (01) | LOC: BICRAD 11:00 | PROVIDERS: ATTEND Internal Medicine Critical Care Medicine | DX: R06.00 Dyspnea, unspecified (principal); J98.4 Other disorders of lung | CPT/HCPCS: 71046 ==

== ENCOUNTER 2021-01-23 08:52 | Emergency (ER) | payer MEDICARE, BC ==
[2021-01-23] MEDS ORDERED: Ondansetron PF 4 MG/2 ML Vial ONE (09:31)
[2021-01-23 10:37] LABS: #Eosinphils 0.1 thou/uL (0.0-0.7); #Lymphocytes 0.4 thou/uL (1.20-3.40); #Monocytes 0.4 thou/uL (0.11-0.59); #Neutrophils 6.5 thou/uL (1.40-6.50); %Basophils 0.1 % (0.0-1.0); %Lymphocytes 5.8 % (21.0-51.0); %Monocytes 5.2 % (0.0-10.0); %Neutrophils 87.9 % (42.0-75.0); Hemoglobin 14.9 g/dL (12.0-16.0); Mean Corpuscular HGB CONC 34.6 g/dL (32.0-36.0); Mean Corpuscular Hemoglobin 31.3 pg (27.0-31.0); Mean Corpuscular Volume 90.5 fL (78.0-98.0); Mean Platelet Volume 6.9 fL (7.4-10.4); Platelet Count 183 thou/uL (130-400); RBC Distribution Width 12.9 % (11.5-14.5); Red Blood Cell (RBC) Count 4.77 mill/uL (4.20-5.40); White Blood Cell (WBC) Count 7.4 thou/uL (4.8-10.8)
[2021-01-23 10:49] LABS: ALT (SGPT) 43 U/L (8-55); AST (SGOT) 36 U/L (5-34); Alkaline Phosphatase 67 U/L (40-110); Anion Gap 18 mmol/L (10-20); BUN (Urea Nitrogen) 15 mg/dL (9.8-20.1); Bilirubin, Total 1.2 mg/dL (0.2-1.2); Calc. Creatinine Clearance 0 mL/min (70-130); Calcium 9.1 mg/dL (7.8-10.44); Carbon Dioxide 19 mmol/L (23-31); Chloride 105 mmol/L (98-107); Globulin 2.7 g/dL (2.4-3.5); Glucose 128 mg/dL (80-115); Potassium 3.8 mmol/L (3.5-5.1); Protein, Total 6.7 g/dL (5.8-8.1); Sodium 138 mmol/L (136-145)
[2021-01-23 12:06] LABS: Bilirubin Negative (Negative); Blood, Urine Negative (Negative); Clarity Clear (Clear); Glucose, Urine (Dipstick) Normal (Negative); Ketone, Urine Negative (Negative); Leukocyte Negative Leu/uL (Negative); Nitrite Negative (Negative); Protein, Urine (Dipstick) Negative (Neg-Trace); Specific Gravity, Urine 1.017 (1.002-1.036); Urobilinogen Normal mg/dL (Less than 2)
== END 2021-01-23 13:25 | disposition home or self-care (01) ==
LOC: ERS 08:52
DX: T88.1XXA Other complications following immunization, not elsewhere classified, initial encounter (principal); R11.2 Nausea with vomiting, unspecified; T50.B95A Adverse effect of other viral vaccines, initial encounter; Z79.82 Long term (current) use of aspirin; Z79.899 Other long term (current) drug therapy; E78.5 Hyperlipidemia, unspecified; I10 Essential (primary) hypertension
CPT/HCPCS: 80053; 81003; 85025; 93005; 96372; 96374; J0500; J2405

== ENCOUNTER 2021-06-25 12:07 | Outpatient (CLI) | payer BC, MEDICARE | END 2021-06-25 12:08 | disposition home or self-care (01) | LOC: TBSIIMAG 12:07 | PROVIDERS: ATTEND Orthopaedic Surgery | DX: M23.92 Unspecified internal derangement of left knee (principal); S83.242A Other tear of medial meniscus, current injury, left knee, initial encounter ==

== ENCOUNTER 2021-07-12 15:35 | Outpatient (CLI) | payer BC, MEDICARE ==
[2021-07-12 16:09] LABS: #Eosinphils 0.3 10x3/uL (0.0-0.5); #Monocytes 0.4 10x3/uL (0.0-1.1); #Neutrophils 3.4 10x3/uL (1.5-8.4); %Basophils 0.6 % (0.0-2.0); %Eosinophils 4.5 % (0.0-6.0); %Monocytes 6.1 % (0.0-10.0); %Neutrophils 55.5 % (40.0-75.0); Hemoglobin 15.4 g/dL (12.0-15.5); Mean Corpuscular HGB CONC 33.5 g/dL (32.0-36.0); Mean Corpuscular Hemoglobin 30.5 pg (27.0-33.0); Mean Corpuscular Volume 91.1 fl (81.6-98.3); Mean Platelet Volume 8.9 fl (7.4-10.4); Platelet Count 307 10x3/uL (150-450); RBC Distribution Width 13.1 % (11.5-14.5); Red Blood Cell (RBC) Count 5.05 10x6/uL (3.90-5.03); White Blood Cell (WBC) Count 6.2 10x3/uL (3.5-10.5)
[2021-07-12 16:25] LABS: Anion Gap 15 mmol/L (10-20); BUN (Urea Nitrogen) 17 mg/dL (9.8-20.1); Calc. Creatinine Clearance 0 mL/min (70-130); Calcium 8.8 mg/dL (7.8-10.44); Carbon Dioxide 23 mmol/L (23-31); Chloride 107 mmol/L (98-107); Glucose 161 mg/dL (80-115); Potassium 3.6 mmol/L (3.5-5.1); Sodium 141 mmol/L (136-145)
[2021-07-13 19:20] LABS: SARS-CoV-2 PCR by NAA Not Detected (NotDetected)
== END 2021-07-12 15:36 | disposition home or self-care (01) ==
LOC: LABBT 15:35
PROVIDERS: ATTEND Orthopaedic Surgery
DX: Z01.818 Encounter for other preprocedural examination (principal); S83.242A Other tear of medial meniscus, current injury, left knee, initial encounter; Z20.822 Contact with and (suspected) exposure to COVID-19
CPT/HCPCS: 80048; 85025; 93005; 93010; U0003; U0005

== ENCOUNTER 2021-07-17 09:47 | Day surgery (SDC) | payer BC, MEDICARE ==
[2021-07-09 12:04] VITALS: BMI 30.9
[2021-07-17] MEDS ORDERED: PROPOFOL 20 ML ONE (11:14)
[2021-07-17] MEDS ORDERED: Fentanyl 250 MCG/5 ML VIAL ONE (11:34)
[2021-07-17] MEDS ORDERED: Dexmedetomidine 200 MCG/2 ML VIAL ONE (11:35)
[2021-07-17] MEDS ORDERED: ceFAZolin 2 GM/Dextrose 50 ML IVPB ONE (12:16)
[2021-07-17] MEDS ORDERED: Lidocaine 2% w/Epinephrine 1:200K 20 ML VIAL ONE (12:35)
[2021-07-17] MEDS ORDERED: PROPOFOL 200 MG/20 ML VIAL ONE (12:35)
[2021-07-17] MEDS ORDERED: Lidocaine 1% PF 5 ML VIAL ONE (12:35)
[2021-07-17] MEDS ORDERED: Dexamethasone 20 MG/5 ML VIAL ONE (12:35)
[2021-07-17] MEDS ORDERED: ePHEDrine 50 MG/ML VIAL ONE (12:35)
[2021-07-17] MEDS ORDERED: Ondansetron PF 4 MG/2 ML Vial ONE (12:35)
[2021-07-17] MEDS ORDERED: Bupivacaine HCl 0.5%/Epinephrine 1:200,000/PF 30 ml Vial ONE (12:35)
== END 2021-07-17 15:34 | disposition home or self-care (01) ==
LOC: SDC 09:47
PROVIDERS: ATTEND Orthopaedic Surgery
PROC: 0SBD4ZZ Excision of Left Knee Joint, Percutaneous Endoscopic Approach (ICD-10-PCS; principal; 2021-07-17)
DX: S83.232A Complex tear of medial meniscus, current injury, left knee, initial encounter (principal); M94.262 Chondromalacia, left knee; M17.12 Unilateral primary osteoarthritis, left knee; M71.22 Synovial cyst of popliteal space [Baker], left knee; E78.5 Hyperlipidemia, unspecified; Z86.16 Personal history of COVID-19; Z87.891 Personal history of nicotine dependence; Z79.82 Long term (current) use of aspirin; Z79.899 Other long term (current) drug therapy; Z88.2 Allergy status to sulfonamides; Z88.8 Allergy status to other drugs, medicaments and biological substances
CPT/HCPCS: J0690; J1100; J2405; J2704; J3010; J3490

== ENCOUNTER 2021-11-20 12:36 | Outpatient (CLI) | payer BC, MEDICARE | END 2021-11-20 12:37 | disposition home or self-care (01) | LOC: BICMAMMO 12:36 | PROVIDERS: ATTEND Family Medicine Sports Medicine | DX: Z12.31 Encounter for screening mammogram for malignant neoplasm of breast (principal); Z13.820 Encounter for screening for osteoporosis; Z78.0 Asymptomatic menopausal state; M81.0 Age-related osteoporosis without current pathological fracture; M85.88 Other specified disorders of bone density and structure, other site; Z80.3 Family history of malignant neoplasm of breast | CPT/HCPCS: 77063; 77067; 77080 ==